=== PATIENT | female | born 1980 | race Two or more races ===

== ENCOUNTER 2017-11-09 17:19 | Inpatient (IN) | payer OTHER ==
[~2017-11-09] VITALS: Ht 162.6 cm; Wt 2.7 kg
[2017-11-09] MEDS ORDERED: PRENATABS RX T1 EACH PO (19:05)
== END 2017-11-12 14:05 | DRG 766 ==
LOC: LDR 17:19 → OB/GYN 21:49
PROVIDERS: Obstetrics & Gynecology
PROC: 0UT70ZZ Resection of Bilateral Fallopian Tubes, Open Approach (ICD-10-PCS; 2017-11-09)
PROC: 4A1HXCZ Monitoring of Products of Conception, Cardiac Rate, External Approach (ICD-10-PCS; 2017-11-09)
PROC: 10D00Z1 Extraction of Products of Conception, Low, Open Approach (ICD-10-PCS; principal; 2017-11-09 20:00)
DX: O34.211 Maternal care for low transverse scar from previous cesarean delivery (principal); Z3A.38 38 weeks gestation of pregnancy; Z37.0 Single live birth; Z30.2 Encounter for sterilization; Z64.1 Problems related to multiparity